=== PATIENT | female | born 1960 | race American Indian/Alaskan Native ===

== ENCOUNTER 2017-06-15 07:17 | Outpatient (CLI) | payer OTHER ==
--- NOTE | 2017-06-15 13:33 | Mammography Report ---
Bilateral digital screening mammogram with CAD. No prior studies are available. Findings: There are scattered fibroglandular densities. No masses or suspicious calcifications are seen. No architectural distortion is present. Impression: Normal mammogram. BI-RADS code: 1. Recommendation: Annual screening.
== END 2017-06-15 07:18 | disposition home or self-care (01) ==
LOC: MAMMO 07:17
PROVIDERS: ATTEND Internal Medicine
DX: Z12.31 Encounter for screening mammogram for malignant neoplasm of breast (principal)
CPT/HCPCS: 77067; G0202

== ENCOUNTER 2018-11-21 14:57 | Emergency (ER) | payer OTHER ==
--- NOTE | 2018-11-21 16:40 | Emergency Department Report ---
ED Syncope HPI - General Stated Complaint: SYNCOPE Time Seen by Provider: 11/21/18 16:28 Source: patient - History of Present Illness Initial Comments: Patient is 58 years old female with no significant past medical history. [place] ent presented [place] the ER via EMS from [place]. Patient brought for evaluation for syncopal episode with loss of consciousness. 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 She stated that patient was not responding to them for approximately 30 minutes. She stated that eyes was rolling back and patient was shaking but no jerking. Patient stated that she had a remote history back in 2016 with a similar episode. She stated that they found that her blood pressure was very high. Patient stated that she is back to normal except for feeling generalized weakness. Patient denied any chest pain or shortness of breath, headache, neck pain, abdominal pain or extremity pain. She also denied any nausea or vomiting. Timing/Prior Episodes: single episode today, remote history Precipitating Factors: Positive: blurred vision, lightheadedness Context: sitting Loss of Consciousness: prolonged (minutes) Current Symptoms: back to normal - Related Data Allergies/Adverse Reactions: Allergies No Known Allergies Allergy (Unverified 06/15/17 07:17) ED Review of Systems ROS: Stated complaint: SYNCOPE Other details as noted in HPI Comment: All other systems reviewed and negative Constitutional: denies: chills, fever Respiratory: denies: cough, orthopnea, shortness of breath, SOB with exertion, SOB at rest, wheezing Cardiovascular: denies: chest pain, palpitations, dyspnea on exertion Gastrointestinal: denies: abdominal pain, nausea, vomiting, diarrhea, constipation, hematemesis, melena, hematochezia Musculoskeletal: denies: back pain Skin: denies: rash, lesions Neurological: weakness (generalized), vertigo. denies: headache, numbness, paresthesias, confusion, abnormal gait ED Physical Exam - General General appearance: alert, in no apparent distress - Head Head exam: Present: atraumatic, normocephalic, normal inspection - Eye Eye exam: Present: normal appearance, PERRL - ENT ENT exam: Present: normal exam, normal orophraynx, mucous membranes moist - Neck Neck exam: Present: normal inspection, full ROM. Absent: tenderness, meningismus, lymphadenopathy, thyromegaly - Respiratory Respiratory exam: Present: normal lung sounds bilaterally. Absent: respiratory distress, wheezes, rales, rhonchi, stridor, chest wall tenderness, accessory muscle use, decreased breath sounds, prolonged expiratory - Cardiovascular Cardiovascular Exam: Present: regular rate, normal rhythm, normal heart sounds - GI/Abdominal GI/Abdominal exam: Present: soft, normal bowel sounds. Absent: distended, tenderness, guarding, rebound, rigid, organomegaly, mass, bruit, pulsatile mass, hernia - Extremities Exam Extremities exam: Present: normal inspection, full ROM, normal capillary refill. Absent: tenderness, pedal edema, calf tenderness - Back Exam Back exam: Present: normal inspection, full ROM. Absent: tenderness, CVA tenderness (R), CVA tenderness (L), muscle spasm, paraspinal tenderness, vertebral tenderness - Neurological Exam Neurological exam: Present: alert, oriented X3, CN II-XII intact, normal gait, reflexes normal - Skin Skin exam: Present: warm, intact, normal color ED Course Vital Signs 11/21/18 11/21/18 16:26 19:00 Temperature 98.2 F 98 F Pulse Rate 60 62 Respiratory 16 18 Rate Blood Pressure 142/64 Blood Pressure 122/57 [Left] O2 Sat by Pulse 100 100 Oximetry ED Medical Decision Making - Lab Data Result diagrams: 11/21/18 17:03 11/21/18 17:03 - EKG Data -: EKG Interpreted by Mo EKG shows normal: sinus rhythm Rate: normal - EKG Data Interpretation: no acute changes - Radiology Data Radiology results: report reviewed Referring Physician: ANGELITO TRINH Patient Name: CRYSTAL GREEN Date of : 1960 Sex: Female Report Date: 2018-11-21 Report Status: Finalized Findings [facility] [address] [place] [address] Cat Scan Report Signed Patient: CRYSTAL GREEN MR#: [id number] : 1960 Acct:[id number] Age/Sex: 58 / F ADM Date: 11/21/18 Loc: ED Attending Dr: Ordering Physician: ANGELITO TRINH Date of Service: 11/21/18 Procedure(s): CT angio chest Accession Number(s): [id number] cc: ANGELITO TRINH FINAL REPORT PROCEDURE: CT angiogram chest with contrast. TECHNIQUE: Computerized tomographic angiography of the chest was performed after the IV injection of iodinated nonionic contrast including image processing. The image data was postprocessed using 2- dimensional multiplanar reformatted (MPR) and 3-dimensional (MIP and/or volume rendered) techniques. HISTORY: Syncope, elevated D-dimer. COMPARISON: No prior studies are available for comparison. FINDINGS: The trachea and central bronchi appear normal. The lungs are clear and well expanded. There are no pleural effusions. The thoracic aorta has a normal caliber without evidence of dissection. The pul monary arteries enhance normally. There are no filling defects to indicate pulmonary embolism. There is no mediastinal adenopathy. The heart size is mildly enlarged. The thoracic skeleton appears intact. IMPRESSION: Normal study. Transcribed By: MRM Dictated By: CHARLEEN VAIL MD Electronically Authenticated By: CHARLEEN VAIL MD Signed Date/Time: 11/21/181939 DD/ 41 TD/TT: 11/21/181941 Referring Physician: ANGELITO TRINH Patient Name: CRYSTAL GREEN Date of : 1960 Sex: Female Report Date: 2018-11-21 Report Status: [place] [address] Cat Scan Report Signed Patient: CRYSTAL GREEN MR#: [id number] : 1960 Acct:[id number] Age/Sex: 58 / F ADM Date: 11/21/18 Loc: ED Attending Dr: Ordering Physician: ANGELITO TRINH Date of Service: 11/21/18 Procedure(s): CT head/brain wo con Accession Number(s): [id number] cc: ANGELITO TRINH FINAL REPORT PROCEDURE: CT head without contrast. TECHNIQUE: Computerized tomography of the head was performed without contrast material. HISTORY: Syncope. COMPARISON: No prior studies are available for comparison. FINDINGS: The ventricles are normal in size. The mckeon matter and white matter appear normal. There are no mass lesions. There is no intracranial hemorrhage. The calvarium appears intact. The mastoid air cells and visualized paranasal sinuses are clear. IMPRESSION: Normal study. Transcribed By: MRM Dictated By: CHARLEEN VAIL MD Electronically Authenticated By: CHARLEEN VAIL MD Signed Date/Time: 11/21/181944 DD/ 46 TD/TT: 11/21/181946 - Medical Decision Making Patient is 58 years old female with no significant past medical history. Patient presented to the ER via EMS from [facility]. Patient brought for evaluation for syncopal episode with loss of consciousness. 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 She stated that patient was not responding to them for approximately 30 minutes. She stated that eyes was rolling back and patient was shaking but no jerking. Patient stated that she had a remote history back in 2016 with a similar episode. She stated that they found that her blood pressure was very high. Patient stated that she is back to normal except for feeling generalized weakness. Patient denied any chest pain or shortness of breath, headache, neck pain, abdominal pain or extremity pain. She also denied any nausea or vomiting. Patient remained asymptomatic in the ER. CT brain is negative, CTA chest is negative for pulmonary embolism or other pathology. EKG is unremarkable. Troponin is negative. Rest of the blood work is unremarkable. Patient's symptoms might be related to vasovagal however seizure cannot be ruled out. I strongly advised the patient and her family to follow-up with his primary care physician for follow-up was a neurologist. I also advised him to return to the ER if her symptoms return. Both patient and family understood and instruction. Critical care attestation.: If time is entered above; I have spent that time in minutes in the direct care of this critically ill patient, excluding procedure time. ED Disposition Clinical Impression: Syncope and collapse Disposition: DC-01 TO HOME OR SELFCARE Is pt being admited?: No Condition: Stable Instructions: Syncope (ED) Additional Instructions: Please follow up with her primary care physician for referral to an neurologist. Referrals: PRIMARY CARE, [Primary Care Provider] - 3-5 Days
[2018-11-21 17:18] LABS: Basophils # (Auto) 0.1 K/mm3 (0.0-0.1); Eosinophils # (Auto) 0.1 K/mm3 (0.0-0.4); Hematocrit 37.6 % (30.3-42.9); Hemoglobin 12.5 gm/dl (10.1-14.3); Lymphocytes # (Auto) 1.9 K/mm3 (1.2-5.4); Lymphocytes % (Auto) 28.5 % (13.4-35.0); Mean Corpuscular HGB Conc 33 % (30-34); Mean Corpuscular Volume 85 fl (79-97); Monocytes # (Auto) 0.4 K/mm3 (0.0-0.8); Monocytes % (Auto) 5.4 % (0.0-7.3); Platelet Count 292 K/mm3 (140-440); Red Blood Count 4.41 M/mm3 (3.65-5.03); Red Cell Distribution Width 13.8 % (13.2-15.2)
[2018-11-21 17:42] LABS: BUN/Creatinine Ratio 11; Blood Urea Nitrogen 9 mg/dL (7-17); Calcium 8.6 mg/dL (8.4-10.2); Hemolysis Index 4
[2018-11-21 17:43] LABS: INR 0.91 (0.87-1.13)
[2018-11-21 18:05] LABS: Alanine Aminotransferase 10 units/L (7-56); Albumin 3.8 g/dL (3.9-5)
[2018-11-21 18:06] LABS: Bilirubin,Direct < 0.2 mg/dL (0-0.2)
[2018-11-21 19:14] VITALS: BP 122/57
--- NOTE | 2018-11-21 19:40 | Cat Scan Report ---
FINAL REPORT PROCEDURE: CT angiogram chest with contrast. TECHNIQUE: Computerized tomographic angiography of the chest was performed after the IV injection of iodinated nonionic contrast including image processing. The image data was postprocessed using 2-dim ensional multiplanar reformatted (MPR) and 3-dimensional (MIP and/or volume rendered) techniques. HISTORY: Syncope, elevated D-dimer. COMPARISON: No prior studies are available for comparison. FINDINGS: The trachea and central bronchi appear normal. The lungs are clear and well expanded. There are no pl eural effusions. The thoracic aorta has a normal caliber without evidence of dissection. The pulmonar y arteries enhance normally. There are no filling defects to indicate pulmonary embolism. There is no mediastinal adenopathy. The heart size is mildly enlarged. The thoracic skeleton appears intact. IMPRESSION: Normal study.
--- NOTE | 2018-11-21 19:45 | Cat Scan Report ---
FINAL REPORT PROCEDURE: CT head without contrast. TECHNIQUE: Computerized tomography of the head was performed without contrast material. HISTORY: Syncope. COMPARISON: No prior studies are available for comparison. FINDINGS: The ventricles are normal in size. The mckeon matter and white matter appear normal. There are no mass lesions. There is no intracranial hemorrhage. The calvarium appears intact. The mastoid air cells and visualized paranasal sinuses are clear. IMPRESSION: Normal study.
== END 2018-11-21 20:15 | disposition home or self-care (01) ==
LOC: ED 14:57
DX: R55 Syncope and collapse (principal)
CPT/HCPCS: 36415; 70450; 71275; 80048; 80076; 84484; 85025; 85379; 85610; 93005; 93010; 99285; Q9967

== ENCOUNTER 2018-12-03 12:56 | Outpatient (CLI) | payer OTHER ==
--- NOTE | 2018-12-03 14:31 | Mammography Report ---
BILATERAL DIGITAL SCREENING MAMMOGRAM with CAD: 12/03/18 12:56:00 CLINICAL: Routine screening. COMPARISON: 06/15/17 FINDINGS: There are bilateral scattered areas of fibroglandular density.No mass, architectural distortion or suspicious calcifications. IMPRESSION: No mammographic evidence of malignancy. BI-RADS CATEGORY: 1 -- Negative RECOMMENDATION: Routine mammographic screening in one year. COMMENT: Patient follow-up letters are generated by our [employer] application.
== END 2018-12-03 12:57 | disposition home or self-care (01) ==
LOC: MAMMO 12:56
PROVIDERS: ATTEND Internal Medicine
DX: Z12.31 Encounter for screening mammogram for malignant neoplasm of breast (principal)
CPT/HCPCS: 77067